=== PATIENT | female | born 1935 | race Caucasian/White ===

== ENCOUNTER 2017-09-20 17:29 | Emergency (ER) | payer MEDICARE ==
--- NOTE | 2017-09-20 18:47 | ERPHSYRPT ---
- History of Present Illness Source: patient, family Exam Limitations: other (history of alzheimers) Patient Subjective Stated Complaint: daughter states she fell this AM. unknown how long down..unsure how long down.. patient unsure of incident due to her dementia Triage Nursing Assessment: alert and confused. daughter states this is normal for her. daughter states she was unable to get up on her own. when assisted up she c/o pain in left upper leg.. pain on palpation to right upper leg. unable to lift leg off of bed. + pedal pulse present. foot warm. denies any other injury. denies hitting head Timing/Duration: today (sometime before noon) Severity: moderate Modifying Factors: Improves With: nothing Associated Symptoms: other (left hip pain), No nausea, No vomiting, No abdominal pain, No shortness of breath, No heartburn, No diaphoresis, No cough, No chills, No chest pain, No fever, No headaches, No loss of appetite, No malaise, No rash, No syncope, No seizure, No weakness Immunizations Up to Date: (unknown) <CAS MEJIA - Last Filed: 09/20/17 19:16> <HECTOR GOODSON - Last Filed: 09/20/17 21:32> - History of Present Illness Time Seen by Provider: 09/20/17 18:25 Physician History: This is a 82-year-old white female with history of dementia, Alzheimer's, high blood pressure. She apparently fell this morning sometime between breakfast and was on the floor. Patient apparently had to be helped up she had complaints of pain in her left hip after being helped up. She denies any other complaints. Patient is very pleasant however she has no recollection of why she fell. Past medical history includes high blood pressure, Alzheimer's, dementia. Past surgical history is negative. (CAS MEJIA) - Review of Systems Constitutional: No Fever, No Chills Eyes: No Symptoms Ears, Nose, & Throat: No Symptoms Respiratory: No Cough, No Dyspnea Cardiac: No Chest Pain, No Edema, No Syncope Abdominal/Gastrointestinal: No Abdominal Pain, No Nausea, No Vomiting, No Diarrhea Genitourinary Symptoms: No Dysuria Musculoskeletal: Joint Pain (left hip pain), No Back Pain, No Neck Pain Skin: No Rash Neurological: No Dizziness, No Focal Weakness, No Sensory Changes Psychological: No Symptoms Endocrine: No Symptoms Hematologic/Lymphatic: No Symptoms All Other Systems: Reviewed and Negative <CAS MEJIA - Last Filed: 09/20/17 19:16> - Past Medical History Pertinent Past Medical History: Yes - Past Surgical History Past Surgical History: Yes - Social History Smoking Status: Never smoker Exposure to second hand smoke: No Drug Use: none Patient Lives Alone: No - Female History Hx Now: No <CAS MEJIA - Last Filed: 09/20/17 19:16> - Physical Exam General Appearance: other (well-developed well-nourished elderly white female oriented to person and place very pleasant and cooperative to exami) Eye Exam: PERRL/EOMI, eyes nml inspection Ears, Nose, Throat Exam: normal ENT inspection, TMs normal, pharynx normal, moist mucous membranes Neck Exam: normal inspection, non-tender, supple, full range of motion Respiratory Exam: normal breath sounds, lungs clear, No respiratory distress Cardiovascular Exam: regular rate/rhythm, normal heart sounds, normal peripheral pulses Gastrointestinal/Abdomen Exam: soft, normal bowel sounds, No tenderness, No mass Back Exam: normal inspection, normal range of motion, No CVA tenderness, No vertebral tenderness Extremity Exam: other (left hip tender with movement and palpation) Neurologic Exam: alert, cooperative, wheat washer II-XII nml as tested, normal mood/ affect, nml cerebellar function, nml station & gait, sensation nml, No oriented x 3 (oriented to person and place), No motor deficits Skin Exam: normal color, warm, dry, No rash SpO2 Interpretation: normal (94%) SpO2: 94 Oxygen Delivery: Room Air <CAS MEJIA - Last Filed: 09/20/17 19:16> - Nursing Vital Signs Nursing Vital Signs: Initial Vital Signs Temperature 98.8 F 09/20/17 17:45 Pulse Rate 108 H 09/20/17 17:45 Respiratory Rate 18 09/20/17 17:45 Blood Pressure 112/66 09/20/17 17:45 O2 Sat by Pulse Oximetry 98 09/20/17 17:45 Pain Scale Pain Intensity 0 - Radiology Exams Femur X-ray Interpretation: Interpreted by me (no femur fractures, left inferior and superior pubic rami fracture) Left Hip X-ray Interpretation: Interpreted by me (No femur fracture, superior and inferior pelvic rami fracture) <CAS MEJIA - Last Filed: 09/20/17 19:16> - Radiology Exams Femur X-ray Interpretation: Interpreted by me <HECTOR GOODSON - Last Filed: 09/20/17 21:32> Ordered Tests: Active Orders 24 hr Category Date Time Status EKG-ER Only STAT Care 09/20/17 18:42 Active IV Insertion STAT Care 09/20/17 18:42 Active FEMUR Stat Exams 09/20/17 18:09 Taken HIP UNI (2V) INCL PEL IF DONE Stat Exams 09/20/17 18:08 Taken CBC W DIFF Stat Lab 09/20/17 19:00 Completed CMP Stat Lab 09/20/17 19:00 Completed Lab/Rad Data: Laboratory Result Diagrams 09/20/17 19:00 09/20/17 19:00 Laboratory Results 09/20/17 09/20/17 Range/Units 19:00 19:00 WBC 11.1 H (4.0-10.5) K/mm3 RBC 4.21 (4.1-5.4) M/mm3 Hgb 13.6 (12.0-16.0) gm/dl Hct 38.7 (35-47) % MCV 91.9 (78-100) fl MCH 32.3 H (26-32) pg MCHC 35.1 (32-36) g/dl RDW 13.4 (11.5-14.0) % Plt Count 213 (150-450) K/mm3 MPV 9.2 (6-9.5) fl Gran % 79.8 H (36.0-66.0) % Eos # (Auto) 0 (0-0.5) Absolute Lymphs (auto) 0.88 L (1.0-4.6) Absolute Monos (auto) 1.34 H (0.0-1.3) Lymphocytes % 7.9 L (24.0-44.0) % Monocytes % 12.1 H (0.0-12.0) % Eosinophils % 0.0 (0.00-5.0) % Basophils % 0.2 (0.0-0.4) % Absolute Granulocytes 8.84 H (1.4-6.9) Basophils # 0.02 (0-0.4) Sodium 145 (137-145) mmol/L Potassium 3.4 L (3.5-5.1) mmol/L Chloride 109 H (98-107) mmol/L Carbon Dioxide 22 (22-30) mmol/L Anion Gap 18.0 H (5-15) MEQ/L BUN 24 H (7-17) mg/dL Creatinine 0.80 (0.52-1.04) mg/dL Estimated GFR > 60.0 ML/MIN Glucose 148 H (74-106) mg/dL Calcium 9.9 (8.4-10.2) mg/dL Total Bilirubin 1.20 (0.2-1.3) mg/dL AST 28 (14-36) U/L ALT 18 (0-35) U/L Alkaline Phosphatase 76 (38-126) U/L Serum Total Protein 7.8 (6.3-8.2) g/dL Albumin 4.7 (3.5-5.0) g/dL - Progress Progress: improved <CAS MEJIA - Last Filed: 09/20/17 19:16> - Progress Progress: unchanged Counseled pt/family regarding: diagnosis, need for follow-up, rad results <HECTOR GOODSON - Last Filed: 09/20/17 21:32> - Progress Progress Note: 09/20/17 19:11 This is a very pleasant 82-year-old white female with history of Alzheimer's and dementia as well as high blood pressure, Who was found down at home lives at assisted living, She apparently was unable to get up on her own she felt some time between breakfast and noon family thinks it was closer to noon. She is complaining of pain in her left hip with standing.She has pain with movement of her left hip pain with standing on her left leg. She denies any other complaints. X-ray of the patient's left hip and left femur failed to show fractures of the femur however there is both the superior inferior pubic rami fracture. Patient appears to be stable she is not in pain if she is not trying to stand. I have ordered CBC CMP EKG on this patient. It is likely that the patient will be transferred t as she will be unable to walk. And will need pain control. . Once labs are available Will anticipate transfer to facility where her family physician can see her.( Dr Serrano) It is shift change. Case will be transferred to Dr. Goodson. Due to shift change case has been discussed with Dr. Goodson. 09/20/17 19:15 (CAS MEJIA) 09/20/17 19:23 Pt care discussed and care accepted from Dr Mejia at 19:00. (HECTOR GOODSON) <CAS MEJIA - Last Filed: 09/20/17 19:16> - Departure Time of Disposition: 21:31 Departure Disposition: Transfer (Transfer to [facility] per Dr Otero.) Critical Care Time: No <HECTOR GOODSON - Last Filed: 09/20/17 21:32> - Departure Clinical Impression: Pelvic fracture Condition: Stable Referrals: HARRIETT JOHN [Primary Care Provider] -
[2017-09-20 19:04] LABS: BASOPHIL % 0.2 % (0.0-0.4); Basophil (Absolute #) 0.02 (0-0.4); Eosinophil (Absolute #) 0 (0-0.5); Granulocyte Absolute (ANC) 8.84 (1.4-6.9); Granulocytes % 79.8 % (36.0-66.0); Hematocrit 38.7 % (35-47); Hemoglobin 13.6 gm/dl (12.0-16.0); Lymphocyte (Absolute #) 0.88 (1.0-4.6); Lymphocytes % 7.9 % (24.0-44.0); Mean Cell Volume 91.9 fl (78-100); Mean Corpuscular Hemoglobin 32.3 pg (26-32); Mean Corpuscular Hgb Concent. 35.1 g/dl (32-36); Mean Platelet Volume 9.2 fl (6-9.5); Monocyte (Absolute #) 1.34 (0.0-1.3); Monocytes % 12.1 % (0.0-12.0); Platelet Count 213 K/mm3 (150-450); Red Blood Count 4.21 M/mm3 (4.1-5.4); Red Cell Distribution Width 13.4 % (11.5-14.0); White Blood Count 11.1 K/mm3 (4.0-10.5)
[2017-09-20 19:30] LABS: ALBUMIN 4.7 g/dL (3.5-5.0); ALKALINE PHOSPHATASE 76 U/L (38-126); BLOOD UREA NITROGEN 24 mg/dL (7-17); CHLORIDE 109 mmol/L (98-107); Calcium 9.9 mg/dL (8.4-10.2); Carbon Dioxide 22 mmol/L (22-30); Glucose 148 mg/dL (74-106); Potassium 3.4 mmol/L (3.5-5.1); SGOT/AST 28 U/L (14-36); SGPT/ALT 18 U/L (0-35); SODIUM 145 mmol/L (137-145); Total Protein 7.8 g/dL (6.3-8.2)
[2017-09-20 22:10] VITALS: BP 167/83; PULSE 80; O2SAT 96
--- NOTE | 2017-09-20 22:39 | XRAY ---
Indication: Pain following fall. Comparison: None 2 views of the left femur demonstrates minimally displaced left superior and inferior pubic ramus fractures. Also mild osteopenia and mild scattered vascular calcifications. No other bony, articular, or soft tissue abnormalities.
--- NOTE | 2017-09-20 22:43 | XRAY ---
Indication: Pain following fall. Comparison: None AP pelvis and 2 views of the left hip demonstrates minimally displaced left superior and inferior pubic ramus fractures. Also mild osteopenia, lower lumbar degenerative spondylosis, and mild scattered vascular calcifications. No other bony, articular, or soft tissue abnormalities.
== END 2017-09-20 22:53 | disposition short-term general hospital (02) ==
LOC: ED 17:29
DX: S32.502A Unspecified fracture of left pubis, initial encounter for closed fracture (principal); W18.30XA Fall on same level, unspecified, initial encounter; Y92.009 Unspecified place in unspecified non-institutional (private) residence as the place of occurrence of the external cause
CPT/HCPCS: 36000; 36415; 51702; 73502; 73552; 80053; 85025; 93005; 99285